=== PATIENT | female | born 1990 | race American Indian/Alaskan Native ===

== ENCOUNTER 2018-09-16 14:17 | Outpatient (CLI) | payer OTHER ==
[2018-09-16] MEDS ORDERED: PRENATAL TABLE1 EAC1 PO (14:40)
== END 2018-09-17 15:40 | disposition home or self-care (01) ==
LOC: OBS/DEL 14:17
DX: O26.893 Other specified pregnancy related conditions, third trimester (principal); R19.7 Diarrhea, unspecified; Z34.03 Encounter for supervision of normal first pregnancy, third trimester

== ENCOUNTER 2018-09-28 06:36 | Outpatient (CLI) | payer OTHER ==
[~2018-09-28 06:36] MED LIST: PRENATAL TABLE1 EAC1 PO
== END 2018-09-28 15:30 | disposition home or self-care (01) ==
LOC: OBS/DEL 06:36
DX: O60.03 Preterm labor without delivery, third trimester (principal); Z34.03 Encounter for supervision of normal first pregnancy, third trimester

== ENCOUNTER 2018-10-13 13:10 | Inpatient (IN) | payer OTHER ==
[~2018-10-13] VITALS: Ht 160 cm; Wt 58.1 kg
== END 2018-10-15 14:11 | disposition home or self-care (01) | DRG 807 ==
LOC: OB/GYN 13:10 → LDR 13:10 → OB/GYN 20:30
PROVIDERS: ADMIT Obstetrics & Gynecology
PROC: 10E0XZZ Delivery of Products of Conception, External Approach (ICD-10-PCS; principal; 2018-10-13)
PROC: 4A1HXCZ Monitoring of Products of Conception, Cardiac Rate, External Approach (ICD-10-PCS; 2018-10-13)
DX: O80 Encounter for full-term uncomplicated delivery (principal); Z37.0 Single live birth; Z3A.38 38 weeks gestation of pregnancy

== ENCOUNTER 2024-07-29 07:35 | Inpatient (IN) | payer OTHER ==
[~2024-07-29] VITALS: Ht 160 cm; Wt 72.1 kg
[~2024-07-29 07:35] MED LIST changes: +PRENATAL CAPLE1 EAC1
[2024-07-29 08:03] VITALS: BP 108/72; O2SAT 98
[2024-07-29] MEDS ORDERED: RINGERS SOLUTION,LACTATED 1,000 ML IV SCH (08:30)
[2024-07-29 09:10] LABS: PH,URINE 6.5 (5.0-8.0); URINE APPEARANCE Clear; URINE BILIRRUBIN Negative (NEGATIVE); URINE BLOOD Negative; URINE COLOR Yellow; URINE GLUCOSE Negative (NEGATIVE); URINE KETONE Negative (NEGATIVE); URINE LEUKOCYTE Small; URINE NITRATE Negative; URINE PROTEIN Negative (NEGATIVE); URINE UROBILINOGEN 0.2 E.U./dl
[2024-07-29 09:11] LABS: HEMATOCRIT 33.2 % (36.0-45.00); HEMOGLOBIN 10.9 g/dL (12.0-15.00); MEAN CELL VOLUME 84.9 fL (80.00-100.00); PLATELET COUNT 250 K/uL (150-450); RED BLOOD COUNT 3.91 M/uL (4.00-6.00); RED CELL DISTRIBUTION WIDTH 16.2 % (11.5-14.5); URINE BACTERIA 780.8 uL (0.0-1933); URINE EPITHELIAL CELLS 98.9 uL (0.0-38.8); URINE WBC 32.7 uL (0.0-23.2)
[2024-07-29 09:42] LABS: INR 0.94; PARTIAL THROMBOPLASTIN TIME 25.8 SECONDS (22.0-34.0); PROTHROMBIN TIME 10.3 SECONDS (9.0-11.5)
[2024-07-29 10:20] LABS: URINE RBC 0.5 uL (0.0-20.8)
[2024-07-29 11:35] VITALS: BP 113/78
[2024-07-29] MEDS ORDERED: OXYTOCIN 10 UNITS/ML VIAL ONE (12:00)
[2024-07-29] MEDS ORDERED: OXYTOCIN 20 UNITS/500ML RL PIGGYBAG IV SCH (12:15)
[2024-07-29 15:39] VITALS: BP 122/76
[2024-07-29] MEDS ORDERED: ERYTHROMYCIN BASE OPHT 1GM EACH TUBE OP ONE (17:05)
[2024-07-29] MEDS ORDERED: CHLORHEXIDINE GLUCONATE 120 ML BOTTLE TOP ONE (17:06)
[2024-07-29] MEDS ORDERED: OXYTOCIN 20 UNITS/1000ML RL PIGGYBAG IV ONE ×2 (17:06→19:00)
[2024-07-29] MEDS ORDERED: LIDOCAINE HCL 1% 10ML VIAL ONE (17:06)
[2024-07-29 19:00] VITALS: BP 109/65
[2024-07-29] MEDS ORDERED: ACETAMINOPHEN 500 MG GEL..CAP PO PRN (19:15)
[2024-07-29] MEDS ORDERED: CHLORHEXIDINE GLUCONATE 120 ML BOTTLE TOP SCH (19:15)
[2024-07-29] MEDS ORDERED: OXYTOCIN 1,000 ML IV SCH (19:15)
[2024-07-29 22:50] VITALS: BP 120/68
[2024-07-30] VITALS: BP 108/74
[2024-07-30 00:08] LABS: HEMATOCRIT 37.4 % (36.0-45.00); HEMOGLOBIN 12.2 g/dL (12.0-15.00); MEAN CELL VOLUME 84.4 fL (80.00-100.00); MEAN CORPUSCULAR HEMOGLOBIN 27.6 pg (27.00-32.0); MEAN CORPUSCULAR HGB CONC 32.7 g/dl (32.0-36.0); PLATELET COUNT 264 K/uL (150-450); RED BLOOD COUNT 4.43 M/uL (4.00-6.00); RED CELL DISTRIBUTION WIDTH 16.2 % (11.5-14.5)
[2024-07-30 08:11] VITALS: BP 115/72
[2024-07-30] MEDS ORDERED: PNV,CALCIUM 72/IRON/FOLIC ACID 1 TAB TABLET PO SCH (09:00)
[2024-07-30 17:23] VITALS: BP 124/81
[2024-07-31 00:06] VITALS: BP 106/72
[2024-07-31 08:00] VITALS: BP 124/80
== END 2024-07-31 14:43 | disposition home or self-care (01) | DRG 807 ==
LOC: LDR 07:35 → OB/GYN 19:08
PROVIDERS: ADMIT Obstetrics & Gynecology; ATTEND Obstetrics & Gynecology
PROC: 10E0XZZ Delivery of Products of Conception, External Approach (ICD-10-PCS; principal; 2024-07-29)
PROC: 4A1HXCZ Monitoring of Products of Conception, Cardiac Rate, External Approach (ICD-10-PCS; 2024-07-29)
DX: O80 Encounter for full-term uncomplicated delivery (principal); Z37.0 Single live birth; Z3A.39 39 weeks gestation of pregnancy